=== PATIENT | male | born 1970 | race Caucasian/White ===

== ENCOUNTER → 2016-08-17 | Outpatient (CLI) | payer BC ==
--- NOTE | 2016-08-17 21:36 | MR ---
EXAMINATION TYPE: MR shoulder RT wo con DATE OF EXAM: 08/17/2016 7:04 PM COMPARISON: Outside right shoulder x-ray July 05, 2016 HISTORY: Right shoulder pain per order. Sharp pain with difficulty raising overhead for 4 to 5 months per patient. TECHNIQUE: Multiplanar, multisequence imaging of the right shoulder is performed without contrast. FINDINGS: Exam is suboptimal as technologist did not perform sagittal images as per normal protocol. Rotator Cuff: Some increased signal in distal supraspinatus and infraspinatus tendons is felt present . No suspicious full-thickness retracted tear is seen. No suspicious focal partial tear is clearly se en on paracoronal images. Rotator cuff muscle bulk is preserved. Subscapularis tendon is grossly inta ct. Acromioclavicular Joint: There is capsular hypertrophy and mild to moderate spurring at acromioclavic ular joint but inferior fat plane is maintained. Distal acromion morphology is unremarkable. Glenohumeral Joint: There is moderate-sized glenohumeral joint effusion. No significant spurring is s een. Labrum: The labrum appears grossly intact given limitation of non-arthrogram study. Biceps Tendon: The long head of biceps is in normal location within bicipital groove. Bone marrow signal: No focal abnormal marrow signal is appreciated. Other: No additional significant abnormality is appreciated. IMPRESSION: 1. No rotator cuff or labral tear clearly seen. 2. Mild to moderate degenerative changes at acromioclavicular joint as detailed above. 3. Moderate-sized glenohumeral joint effusion. Patient may be brought back for additional sagittal sequences free of charge and addendum may be issu ed.
== END | disposition home or self-care (01) ==
LOC: RADMRIMAIN 18:16
PROVIDERS: ATTEND Orthopaedic Surgery
DX: M19.011 Primary osteoarthritis, right shoulder (principal)

== ENCOUNTER → 2024-08-15 | Outpatient (CLI) | payer BC ==
[2024-08-15 15:08] LABS: HCT 51.3 % (39.6-50.0); HGB 16.8 g/dL (13.0-17.0); MCH 31.1 pg (27.0-32.0); MCHC 32.7 g/dL (32.0-37.0); Mean Platelet Volume 13.3 FL (9.5-12.2); NRBC Per 100 WBC 0 X 10*3/uL (0.00-0.01); Platelet Count 159 X 10*3/uL (140-440); RDW 13.4 % (11.5-14.5); WBC 6.45 X 10*3/uL (4.50-10.00)
[2024-08-15 15:22] LABS: ALT 31 U/L (10-49); AST 18 U/L (14-35); Albumin 4.2 g/dL (3.8-4.9); Alkaline Phosphatase 44 U/L (41-126); BUN/Creat Ratio 11.67 Ratio (12.00-20.00); Calcium 9.3 mg/dL (8.7-10.3); Carbon Dioxide 27.3 mmol/L (21.6-31.8); Chloride 105 mmol/L (96-109); Chol/HDL Ratio 2.25 Ratio; Globulin 2.1 g/dL (1.6-3.3); Glucose 123 mg/dL (70-110); LDL Cholesterol,Calculated 67.7 mg/dL (0.0-131.0); Potassium 4.9 mmol/L (3.5-5.5); Sodium 141 mmol/L (135-145); Total Bilirubin 0.7 mg/dL (0.3-1.2); Total Protein 6.3 g/dL (6.2-8.2)
[2024-08-15 16:42] LABS: NT-Pro-B-Type Natriuretic Pept <36 pg/mL (0-125)
[2024-08-15 18:13] LABS: Microalbumin Creatinine Ratio <11 mg/g Cr (0-30)
== END | disposition home or self-care (01) ==
LOC: LABWHC1 09:38
PROVIDERS: ATTEND Student in an Organized Health Care Education/Training Program
DX: Z13.6 Encounter for screening for cardiovascular disorders (principal); D72.9 Disorder of white blood cells, unspecified; I50.9 Heart failure, unspecified; E11.9 Type 2 diabetes mellitus without complications; E78.5 Hyperlipidemia, unspecified; E03.9 Hypothyroidism, unspecified; R79.89 Other specified abnormal findings of blood chemistry
CPT/HCPCS: 36415; 80053; 80061; 82043; 82570; 83036; 83880; 84443; 85027; 86141

== ENCOUNTER 2024-09-07 12:35 | Observation (INO) | payer BC ==
[2024-09-07] MEDS: SODIUM CHLORIDE 0.9% 1,000 ML IV ONE (13:16)
[2024-09-07 13:18] LABS: Basophils # (A) 0.08 10*3/uL (0.00-0.10); Basophils % (A) 0.5 %; Eosinophils # (A) 0.25 10*3/uL (0.04-0.35); Eosinophils % (A) 1.7 %; HCT 51.1 % (39.6-50.0); HGB 18.1 g/dL (13.0-17.0); Immature Platelet Fraction 11.8 % (1.1-6.1); Lymphocytes # (A) 1.25 10*3/uL (0.90-5.00); Lymphocytes % (A) 8.4 %; MCH 32.7 pg (27.0-32.0); MCHC 35.4 g/dL (32.0-37.0); MCV 92.4 fL (80.0-97.0); Mean Platelet Volume 13.1 fL (9.5-12.2); Monocytes # (A) 0.83 10*3/uL (0.20-1.00); Monocytes % (A) 5.6 %; Neutrophils # (A) 12.43 10*3/uL (1.80-7.70); Neutrophils % (A) 83.4 %; Platelet Count 157 10*3/uL (140-440); RBC 5.53 10*6/uL (4.40-5.60); RDW 13.2 % (11.5-14.5)
[2024-09-07 13:27] LABS: ALT 40 U/L (4-49); AST 27 U/L (17-59); African American GFR (CKD) >90 (>60 ml/min/1.73 sqM); Albumin 4.4 g/dL (3.5-5.0); Alkaline Phosphatase 48 U/L (38-126); Amylase 43 U/L (30-110); Anion Gap 8 mmol/L; Blood Urea Nitrogen 14 mg/dL (9-20); Calcium 9.7 mg/dL (8.4-10.2); Carbon Dioxide 26 mmol/L (22-30); Chloride 103 mmol/L (98-107); Glucose 136 mg/dL (74-99); Lipase 35 U/L (23-300); Non-African American GFR(CKD) 82 (>60 ml/min/1.73 sqM); Potassium 4.2 mmol/L (3.5-5.1); Sodium 137 mmol/L (137-145); Total Bilirubin 1.2 mg/dL (0.2-1.3)
--- NOTE | 2024-09-07 13:47 | ED ---
General Adult HPI - General Chief complaint: Abdominal Pain Stated complaint: abd pain Time Seen by Provider: 09/07/24 12:44 Source: patient, RN notes reviewed Mode of arrival: ambulatory Limitations: no limitations - History of Present Illness Initial comments: 53-year-old male presents to the emergency department for evaluation of right lower quadrant abdominal pain. Patient states that this started today after drinking some coffee. He notes that it originated in the epigastric region and then localized to the right lower quadrant. He notes that since then the pain has been a constant stabbing pain. He reports a prior hernia repair a number of years ago. He endorses nausea without vomiting. Denies fever. Admits to anorexia. - Related Data Home Medications Medication Instructions Recorded Confirmed Aspirin EC [Ecotrin Low Dose] 81 mg PO HS 09/07/24 09/07/24 Atorvastatin [Lipitor] 40 mg PO HS 09/07/24 09/07/24 Famotidine 40 mg PO HS 09/07/24 09/07/24 INSULIN LISPRO (For Pump) [humaLOG 0.01 units SQ-PUMP CONTINUOUS 09/07/24 09/07/24 (For Pump)] Losartan Potassium 100 mg PO DAILY 09/07/24 09/07/24 Allergies Allergy/AdvReac Type Severity Reaction Status Date / Time No Known Allergies Allergy Verified 09/07/24 14:22 Review of Systems ROS Statement: Those systems with pertinent positive or pertinent negative responses have been documented in the HPI. ROS Other: All systems not noted in ROS Statement are negative. Past Medical History Past Medical History: Diabetes Mellitus, GERD/Reflux, Hypertension Additional Past Medical History / Comment(s): VARICOSE VEINS, HERNIA History of Any Multi-Drug Resistant Organisms: None Reported Additional Past Surgical History / Comment(s): TESTICLE REMOVED, TESTICLE REPAIR, LASIK SURGERY MERLINE EYES Past Anesthesia/Blood Transfusion Reactions: No Reported Reaction Past Psychological History: No Psychological Hx Reported Smoking Status: Never smoker Past Alcohol Use History: Daily Past Drug Use History: None Reported - Past Family History Mother Family Medical History: Cancer Additional Family Medical History / Comment(s): BREAST General Exam Limitations: no limitations General appearance: alert, in no apparent distress Head exam: Present: atraumatic, normocephalic, normal inspection Eye exam: Present: normal appearance, PERRL, EOMI. Absent: scleral icterus, conjunctival injection, periorbital swelling ENT exam: Present: normal exam, mucous membranes moist Respiratory exam: Present: normal lung sounds bilaterally. Absent: respiratory distress, wheezes, rales, rhonchi, stridor Cardiovascular Exam: Present: normal rhythm, tachycardia, normal heart sounds. Absent: systolic murmur, diastolic murmur, rubs, gallop, clicks GI/Abdominal exam: Present: distended, tenderness (Right lower quadrant focal tenderness palpation), normal bowel sounds. Absent: soft, guarding, rebound, rigid Extremities exam: Present: normal inspection, full ROM, normal capillary refill. Absent: tenderness, pedal edema, joint swelling, calf tenderness Back exam: Present: normal inspection Neurological exam: Present: alert, oriented X3 Psychiatric exam: Present: normal affect, normal mood Skin exam: Present: warm, dry, intact, normal color. Absent: rash Course Vital Signs 09/07/24 12:40 Temperature 98.8 F Pulse Rate 112 H Respiratory 20 Rate Blood Pressure 162/88 O2 Sat by Pulse 97 Oximetry Medical Decision Making - Medical Decision Making Was pt. sent in by a medical professional or institution ([facility], HOSPICE CONSULTANT, urgent care, hospital, or senior care...) When possible be specific @ -[No] Did you speak to anyone other than the patient for history (EMS, parent, family, police, friend...)? What history was obtained from this source @ -[No] Did you review nursing and triage notes (agree or disagree)? Why? @ -[I reviewed and agree with nursing and triage notes] Were old charts reviewed (outside hosp., previous admission, EMS record, old EKG, old radiological studies, urgent care reports/EKG's, senior care records)? Report findings @ -[No old charts were reviewed] Differential Diagnosis (chest pain, altered mental status, abdominal pain women, abdominal pain men, vaginal bleeding, weakness, fever, dyspnea, syncope, headache, dizziness, GI bleed, back pain, seizure, CVA, palpatations, mental health, musculoskeletal)? @ -Differential Abdominal Pain Men: Appendicitis, cholecystitis, diverticulosis, ischemic bowel, pancreatitis, hepatitis, UTI, gastroenteritis, AAA, incarcerated hernia, bowel obstruction, constipation, inflammatory bowel, hepatitis, peptic ulcer disease, splenic infarction, perforated viscus, testicular torsion, this is not meant to be an all-inclusive list ] EKG interpreted by me (3pts min.). @ -EKG X-rays interpreted by me (1pt min.). @ -[None done] CT interpreted by me (1pt min.). @ -CT abdomen pelvis obtained reveals acute uncomplicated appendicitis U/S interpreted by me (1pt. min.). @ -[None done] What testing was considered but not performed or refused? (CT, X-rays, U/S, labs)? Why? @ -[None] What meds were considered but not given or refused? Why? @ -[None] Did you discuss the management of the patient with other professionals (professionals i.e. DrJorge, PA, HOSPICE CONSULTANT, lab, RT, psych nurse, social science instructor, table keeper, teacher, contracting officer, caseworker)? Give summary @ -Management discussed with Dr. Potter Was smoking cessation discussed for >3mins.? @ -[No] Was critical care preformed (if so, how long)? @ -[No] Were there social determinants of health that impacted care today? How? (Homelessness, low income, unemployed, alcoholism, drug addiction, transportation, low edu. Level, literacy, decrease access to med. care, half-way, rehab)? @ -[No] Was there de-escalation of care discussed even if they declined (Discuss DNR or withdrawal of care, Hospice)? DNR status @ -[No] What co-morbidities impacted this encounter? (DM, HTN, Smoking, COPD, CAD, Cancer, CVA, ARF, Chemo, Hep., AIDS, mental health diagnosis, sleep apnea, morbid obesity)? @ -[None] Was patient admitted / discharged? Hospital course, mention meds given and route, prescriptions, significant lab abnormalities, going to OR and other pertinent info. @ -[hospital course] Undiagnosed new problem with uncertain prognosis? @ -[No] Drug Therapy requiring intensive monitoring for toxicity (Heparin, Nitro, Insulin, Cardizem)? @ -[No] Were any procedures done? @ -[No] Diagnosis/symptom? @ -[default] Acute, or Chronic, or Acute on Chronic? @ -[default] Uncomplicated (without systemic symptoms) or Complicated (systemic symptoms)? @ -[default] Side effects of treatment? @ -[No] Exacerbation, Progression, or Severe Exacerbation? @ -[No] Poses a threat to life or bodily function? How? (Chest pain, [place], [place], pneumonia, PE, COPD, DKA, ARF, appy, cholecystitis, CVA, Diverticulitis, Homicidal, Suicidal, threat to staff... and all critical care pts) @ -[No] - Lab Data Result diagrams: 09/07/24 13:08 09/07/24 13:08 Lab Results 09/07/24 09/07/24 09/07/24 Range/Units 13:08 13:08 13:08 WBC 14.90 H (4.50-10.00) 10*3/uL RBC 5.53 (4.40-5.60) 10*6/uL Hgb 18.1 H (13.0-17.0) g/dL Hct 51.1 H (39.6-50.0) % MCV 92.4 (80.0-97.0) fL MCH 32.7 H (27.0-32.0) pg MCHC 35.4 (32.0-37.0) g/dL Plt Count 157 (140-440) 10*3/uL MPV 13.1 H (9.5-12.2) fL Immature Gran % (Auto) 0.4 % Neutrophils % 83.4 % Lymphocytes % 8.4 % Monocytes % 5.6 % Eosinophils % 1.7 % Basophils % 0.5 % Immature Gran # 0.06 H (0.00-0.04) 10*3/uL Neutrophils # 12.43 H (1.80-7.70) 10*3/uL Lymphocytes # 1.25 (0.90-5.00) 10*3/uL Monocytes # 0.83 (0.20-1.00) 10*3/uL Eosinophils # 0.25 (0.04-0.35) 10*3/uL Basophils # 0.08 (0.00-0.10) 10*3/uL Immature Plt Fraction 11.8 H (1.1-6.1) % Sodium 137 (137-145) mmol/L Potassium 4.2 (3.5-5.1) mmol/L Chloride 103 (98-107) mmol/L Carbon Dioxide 26 (22-30) mmol/L Anion Gap 8 mmol/L BUN 14 (9-20) mg/dL Creatinine 1.06 (0.66-1.25) mg/dL Est GFR (CKD-EPI)AfAm >90 (>60 ml/min/1.73 sqM) Est GFR (CKD-EPI)NonAf 82 (>60 ml/min/1.73 sqM) Glucose 136 H (74-99) mg/dL Plasma Lactic Acid Moses 1.2 (0.7-2.0) mmol/L Calcium 9.7 (8.4-10.2) mg/dL Total Bilirubin 1.2 (0.2-1.3) mg/dL AST 27 (17-59) U/L ALT 40 (4-49) U/L Alkaline Phosphatase 48 (38-126) U/L Total Protein 7.0 (6.3-8.2) g/dL Albumin 4.4 (3.5-5.0) g/dL Amylase 43 (30-110) U/L Lipase 35 (23-300) U/L Disposition Referrals: Mk Romero DO [Primary Care Provider] - 1-2 days
--- NOTE | 2024-09-07 14:05 | CT ---
EXAMINATION TYPE: CT abdomen pelvis w con DATE OF EXAM: 09/07/2024 1:52 PM COMPARISON: 01/18/2011 CLINICAL INDICATION: Male, 53 years old with history of RLQ pain, abd pain TECHNIQUE: Axial images were obtained from above the diaphragm to the pubic rami in the axial plane a t 5 mm thick sections. Reconstructed images are reviewed on the computer in the coronal plane. CONTRAST: 100 mL of Isovue 300. Study performed without Oral Contrast DLP: 1215.1 mGycm, Automated exposure control for dose reduction was used. FINDINGS: Limited CT sections are obtained the lung bases. The lung bases are clear. CT ABDOMEN: Liver: There is mild fatty infiltration liver. Spleen: Normal Pancreas: Normal Adrenal glands: The adrenal glands are normal. Gallbladder: Normal Kidneys: No masses are evident. No hydronephrosis is present. No cysts are present. Delayed images were obtained through the kidneys, which remain unremarkable. Aorta: Vascular calcification is within the aorta. Inferior vena cava: Normal. CT PELVIS: Loops of bowel within the abdomen and pelvis are normal. There are loops of bowel which are incom pletely distended or lack oral contrast limiting their evaluation. Appendix: The appendix is dilated measuring 1.2 cm. Inflammatory changes are adjacent. Findings are c ompatible with acute appendicitis. No free air is identified. No abscess formation is identified. Urinary bladder: Normal. Genitourinary structures: Prostate is normal Osseous structures: No suspicious lytic or sclerotic lesions. IMPRESSION: 1. Acute appendicitis. Report was called to emergency room PA at the time of imaging. [facility], , 09/07/2024 2:02 PM
[2024-09-07] MEDS: LACTATED RINGERS 1,000 ML IV ONE ×2 (14:56→16:52)
[2024-09-07] MEDS: PIPERACILLIN-TAZOBACTAM 3.375 GM in SODIUM CHLORIDE 0.9% 100 ML IVPB STA (14:56)
[2024-09-07] MEDS ORDERED: NALOXONE 0.4 MG/ML 1 ML VIAL IV PRN (14:57)
[2024-09-07] MEDS ORDERED: HYDROmorphone 1 MG/ML 1 ML SYRINGE IVP PRN (14:57)
[2024-09-07] MEDS ORDERED: HYDROmorphone 0.5 MG/0.5 ML SYRINGE IVP PRN (14:57)
[2024-09-07 15:16] LABS: Appearance,Urine Clear (Clear); Bilirubin,Urine Negative (Negative); Blood,Urine Negative (Negative); Color,Urine Colorless; Glucose,Urine (UA) Negative (Negative); Ketones,Urine 1+ (Negative); Leukocyte Esterase,Urine Negative (Negative); Nitrite,Urine Negative (Negative); PH, Urine 7.5 (5.0-8.0); Protein,Urine Negative (Negative); Specific Gravity,Urine 1.044 (1.001-1.035); Urobilinogen,Urine <2.0 mg/dL (<2.0)
[2024-09-07] MEDS: LACTATED RINGERS 1,000 ML IV SCH (16:20)
[2024-09-07] MEDS: ONDANSETRON 4 MG/2 ML VIAL IVP PRN (16:23)
[2024-09-07 16:30] LABS: Glucose,Whole Blood 159 mg/dL (70-110)
--- NOTE | 2024-09-07 16:46 | P.GSHP ---
History of Present Illness H&P Date: 09/07/24 53-year-old male presents to the hospital after waking up this morning with acute onset right lower quadrant pain. Pain was not getting any better and he came to the hospital for evaluation. [place] nauseated. Appetite diminished. White blood cell count noted to be elevated. Afebrile but tachycardic on arrival. Pain is described as stabbing in nature. History of previous hernia. Underwent CT abdomen pelvis which showed acute appendicitis without abscess or obvious rupture. History of previous laparoscopic umbilical hernia repair with mesh. Past Medical History Past Medical History: Diabetes Mellitus, GERD/Reflux, Hypertension Additional Past Medical History / Comment(s): VARICOSE VEINS, HERNIA History of Any Multi-Drug Resistant Organisms: None Reported Additional Past Surgical History / Comment(s): TESTICLE REMOVED, TESTICLE REPAIR, LASIK SURGERY MERLINE EYES Past Anesthesia/Blood Transfusion Reactions: No Reported Reaction Past Psychological History: No Psychological Hx Reported Smoking Status: Never smoker Past Alcohol Use History: Daily Past Drug Use History: None Reported - Past Family History Mother Family Medical History: Cancer Additional Family Medical History / Comment(s): BREAST Medications and Allergies Home Medications Medication Instructions Recorded Confirmed Type Aspirin EC [Ecotrin Low Dose] 81 mg PO HS 09/07/24 09/07/24 History Atorvastatin [Lipitor] 40 mg PO HS 09/07/24 09/07/24 History Famotidine 40 mg PO HS 09/07/24 09/07/24 History INSULIN LISPRO (For Pump) [humaLOG 0.01 units SQ-PUMP CONTINUOUS 09/07/24 09/07/24 History (For Pump)] Losartan Potassium 100 mg PO DAILY 09/07/24 09/07/24 History Allergies Allergy/AdvReac Type Severity Reaction Status Date / Time No Known Allergies Allergy Verified 09/07/24 14:22 Surgical - Exam Vital Signs Temp Pulse Resp BP Pulse Ox 98.8 F 112 H 20 162/88 97 09/07/24 12:40 09/07/24 12:40 09/07/24 12:40 09/07/24 12:40 09/07/24 12:40 Physical exam: General: Well-developed, well-nourished HEENT: Normocephalic, sclerae nonicteric Abdomen: Right lower quadrant tenderness nondistended Extremities: No edema Neuro: Alert and oriented Results - Labs 09/07/24 13:08 09/07/24 13:08 Abnormal Lab Results - Last 24 Hours (Table) 09/07/24 09/07/24 09/07/24 Range/Units 13:08 13:08 15:04 WBC 14.90 H (4.50-10.00) 10*3/uL Hgb 18.1 H (13.0-17.0) g/dL Hct 51.1 H (39.6-50.0) % MCH 32.7 H (27.0-32.0) pg MPV 13.1 H (9.5-12.2) fL Immature Gran # 0.06 H (0.00-0.04) 10*3/uL Neutrophils # 12.43 H (1.80-7.70) 10*3/uL Immature Plt Fraction 11.8 H (1.1-6.1) % Glucose 136 H (74-99) mg/dL POC Glucose (mg/dL) (70-110) mg/dL Ur Specific [place] 1.044 H (1.001-1.035) Urine Ketones 1+ H (Negative) 09/07/24 Range/Units 16:18 WBC (4.50-10.00) 10*3/uL Hgb (13.0-17.0) g/dL Hct (39.6-50.0) % MCH (27.0-32.0) pg MPV (9.5-12.2) fL Immature Gran # (0.00-0.04) 10*3/uL Neutrophils # (1.80-7.70) 10*3/uL Immature Plt Fraction (1.1-6.1) % Glucose (74-99) mg/dL POC Glucose (mg/dL) 159 H (70-110) mg/dL Ur Specific [place] (1.001-1.035) Urine Ketones (Negative) Diabetes panel 09/07/24 Range/Units 13:08 Sodium 137 (137-145) mmol/L Potassium 4.2 (3.5-5.1) mmol/L Chloride 103 (98-107) mmol/L Carbon Dioxide 26 (22-30) mmol/L BUN 14 (9-20) mg/dL Creatinine 1.06 (0.66-1.25) mg/dL Glucose 136 H (74-99) mg/dL Calcium 9.7 (8.4-10.2) mg/dL AST 27 (17-59) U/L ALT 40 (4-49) U/L Alkaline Phosphatase 48 (38-126) U/L Total Protein 7.0 (6.3-8.2) g/dL Albumin 4.4 (3.5-5.0) g/dL Calcium panel 09/07/24 Range/Units 13:08 Calcium 9.7 (8.4-10.2) mg/dL Albumin 4.4 (3.5-5.0) g/dL Pituitary panel 09/07/24 Range/Units 13:08 Sodium 137 (137-145) mmol/L Potassium 4.2 (3.5-5.1) mmol/L Chloride 103 (98-107) mmol/L Carbon Dioxide 26 (22-30) mmol/L BUN 14 (9-20) mg/dL Creatinine 1.06 (0.66-1.25) mg/dL Glucose 136 H (74-99) mg/dL Calcium 9.7 (8.4-10.2) mg/dL Adrenal panel 09/07/24 Range/Units 13:08 Sodium 137 (137-145) mmol/L Potassium 4.2 (3.5-5.1) mmol/L Chloride 103 (98-107) mmol/L Carbon Dioxide 26 (22-30) mmol/L BUN 14 (9-20) mg/dL Creatinine 1.06 (0.66-1.25) mg/dL Glucose 136 H (74-99) mg/dL Calcium 9.7 (8.4-10.2) mg/dL Total Bilirubin 1.2 (0.2-1.3) mg/dL AST 27 (17-59) U/L ALT 40 (4-49) U/L Alkaline Phosphatase 48 (38-126) U/L Total Protein 7.0 (6.3-8.2) g/dL Albumin 4.4 (3.5-5.0) g/dL Assessment and Plan (1) Acute appendicitis Narrative/Plan: 53-year-old male with acute appendicitis. Will proceed with laparoscopic, possible open appendectomy at this time. Risks of bleeding, infection, conversion to an open procedure, bladder bowel and ureteral injury, difficulties related to the previous mesh placement, abscess, hernia reviewed. He understands and wishes to proceed. Current Visit: Yes Status: Acute Code(s): K35.80 - UNSPECIFIED ACUTE APPENDICITIS SNOMED Code(s): 46667634
[2024-09-07] MEDS: HEPARIN SODIUM,PORCINE 5,000 UNIT/ML 1 ML VIAL SQ STA (16:49)
[2024-09-07] MEDS ORDERED: GLYCOPYRROLATE 0.2 MG/ML 2 ML VIAL ONE (16:50)
[2024-09-07] MEDS ORDERED: MIDAZOLAM 2 MG/2 ML VIAL ONE (16:50)
[2024-09-07] MEDS ORDERED: fentaNYL (PF) 50 MCG/ML 2 ML AMP ONE (16:50)
[2024-09-07] MEDS ORDERED: LIDOCAINE 1% INJ 10MG/ML (20 ML MDV) ONE (16:50)
[2024-09-07] MEDS ORDERED: ROCURONIUM 10 MG/ML (5 ML VIAL) IV ONE (16:50)
[2024-09-07] MEDS ORDERED: PHENYLEPHRINE-0.9% NACL SYG 1,000 MCG/10 ML SYRINGE ONE (16:50)
[2024-09-07] MEDS ORDERED: SUCCINYLCHOLINE CHLORIDE 200 MG/10 ML VIAL IV ONE (16:50)
[2024-09-07] MEDS ORDERED: PROPOFOL 10 MG/ML 20 ML VIAL IV ONE (16:50)
[2024-09-07] MEDS ORDERED: NEOSTIGMINE 1 MG/ML 10 ML VIAL ONE (16:50)
[2024-09-07] MEDS: BUPIVACAINE (PF) 0.25% 30 ML VIAL SQ ONE ×2 (17:24→17:47)
[2024-09-07] MEDS ORDERED: ACETAMINOPHEN TAB 325 MG TAB PO PRN (18:01)
[2024-09-07] MEDS ORDERED: traMADol 50 MG TAB PO PRN (18:01)
[2024-09-07] MEDS: IV FLUID CONTINUATION 1,000 ML IV ONE (18:04)
--- NOTE | 2024-09-07 18:05 | P.OP ---
Date of Procedure: 09/07/24 Procedure(s) Performed: PREOPERATIVE DIAGNOSIS: Acute appendicitis POSTOPERATIVE DIAGNOSIS: Same, extensive mid abdominal adhesions PROCEDURE: Laparoscopic appendectomy with laparoscopic lysis of adhesions SURGEON: Tariq EBL: 10 cc ANESTHESIA: General COMPLICATIONS: None OPERATIVE PROCEDURE: The patient was brought and placed on the operating table in the supine position. The patient was placed under general anesthesia. The abdomen was prepped and draped in the usual sterile fashion. A horizontal inc ision was made in the left upper quadrant. Entrance into the abdominal cavity occurred using an optical trocar without difficulty. An additional 12 mm trocar was placed in the lateral aspect of the left lower quadrant and a 5 mm trocar in the left suprapubic location. The patient had adhesions involving small bowel and omentum to the patient's mesh that was placed laparoscopically previously ce ntered around the umbilical region. This appeared to be an 8 cm round mesh. Using a combination of a Kitner and a laparoscopic scissors we were able to carefully dissect the bowel away from the mesh to allow for appropriate visualization of the peritoneal cavity. No visible serosal tears or enterotomies were identified. No significant bleeding was noted. Once the adhesions were lysed which took approximately 20 to 30 minutes we approach to the right lower quadrant. The patient's appendix was acutely inflamed. It had early gangrenous changes but without perforation or abscess. Localized peritonitis was present. The appendix was mobilized by dividing the mesoappendix using LigaSure. The base of the appendix was divided using a white load endoscopic stapler. The appendix was removed using an Endo Catch bag. The fascia at the 12 mm site was closed using a Zuhair-Kendy 0 Vicryl stitch. The skin at all 3 sites was closed using 4-0 Monocryl sutures. Skin glue was then applied. DISPOSITION: Stable to recovery room
[2024-09-07] MEDS ORDERED: INSULIN LISPRO (For Pump) 100 UNIT/ML VIAL SQ-PUMP SCH (20:15)
[2024-09-07] MEDS ORDERED: INSULIN LISPRO (HumaLOG) 100 UNIT/ML 10 mL VL SQ PRN (20:16)
[2024-09-07] MEDS ORDERED: INSULIN PUMP BASAL RATES 1 EACH MISC MISCELLANE PRN (20:16)
[2024-09-07] MEDS ORDERED: INSPUCOR MISCELLANE PRN (20:16)
[2024-09-07 20:22] LABS: Glucose,Whole Blood 188 mg/dL (70-110)
[2024-09-07] MEDS ORDERED: HYDROmorphone 2 MG/ML 1 ML SYRINGE IVP PRN (20:47)
[2024-09-07] MEDS: HYDROcodone/APAP 5-325MG 1 EACH TAB PO PRN (21:12)
[2024-09-07] MEDS: ATORVASTATIN 40 MG TAB PO SCH (21:13)
[2024-09-07] MEDS: FAMOTIDINE 20 MG TAB PO SCH (21:13)
[2024-09-07] MEDS: ASPIRIN 81 MG PO SCH (21:13)
[2024-09-07] MEDS: INSULIN PUMP MEAL BOLUS 1 UNIT MISC MISCELLANE SCH (21:22)
[2024-09-07] MEDS: PIPERACILLIN-TAZOBACTAM 3.375 GM in SODIUM CHLORIDE 0.9% 100 ML IVPB SCH (23:53)
[2024-09-07] MEDS: HEPARIN SODIUM,PORCINE 5,000 UNIT/ML 1 ML VIAL SQ SCH (23:54)
[2024-09-08] MEDS: KETOROLAC 15 MG/ML 1 ML VIAL IVP PRN (00:16)
[2024-09-08 03:21] LABS: Glucose,Whole Blood 78 mg/dL (70-110)
[2024-09-08 06:14] LABS: Glucose,Whole Blood 100 mg/dL (70-110)
[2024-09-08 08:53] LABS: Basophils # (A) 0.07 X 10*3/uL (0.00-0.10); Basophils % (A) 0.7 %; Eosinophils # (A) 0.11 X 10*3/uL (0.04-0.35); Eosinophils % (A) 1.1 %; HCT 45.5 % (39.6-50.0); HGB 15.3 g/dL (13.0-17.0); Lymphocytes # (A) 1.67 X 10*3/uL (0.90-5.00); Lymphocytes % (A) 16.6 %; MCH 31.9 pg (27.0-32.0); MCHC 33.6 g/dL (32.0-37.0); Mean Platelet Volume 13.9 FL (9.5-12.2); Monocytes # (A) 0.78 X 10*3/uL (0.20-1.00); Monocytes % (A) 7.7 %; NRBC Per 100 WBC 0 X 10*3/uL (0.00-0.01); Neutrophils # (A) 7.42 X 10*3/uL (1.80-7.70); Neutrophils % (A) 73.5 %; Platelet Count 159 X 10*3/uL (140-440); RBC 4.79 X 10*6/uL (4.40-5.60); RDW 13.6 % (11.5-14.5); WBC 10.09 X 10*3/uL (4.50-10.00)
[2024-09-08] MEDS: LOSARTAN 50 MG TAB PO SCH (09:42)
--- NOTE | 2024-09-08 10:37 | P.CONS ---
History of Present Illness - Reason for Consult Consult date: 09/08/24 Medical management Requesting physician: Ren Potter - Chief Complaint Status post laparoscopic appendectomy with lysis of adhesions, POD#1 - History of Present Illness This a 53-year-old gentleman with past medical history significant for diabetes mellitus/insulin pump, gastroesophageal reflux disease, hypertension, hernia repairs, varicose veins, daily alcohol use, consumes 7-10 drinks per week, admitted with acute appendicitis, status post laparoscopic appendectomy with lysis of adhesions. OR report states early gangrenous changes but without perforation or abscess, localized peritonitis present. Maintained on antibiotics of Zosyn, IV fluid hydration. afebrile, Tmax 99, WBC nearly normalized, trended down to 10.09. Hemoglobin 15.3, platelets 159. Blood s ugars controlled, with an isolated lower blood sugar 78 in the early a.m. hours. Consumed 25% of clear liquid breakfast. Hemoglobin A1c 6.7. Reports pain controlled. Denies chest pain, palpitations or shortness of breath. Maintaining O2 sats of 93 to mid 90s on room air. Review of Systems ROS Statement: Those systems with pertinent positive or pertinent negative responses have been documented in the HPI. ROS Other: All systems not noted in ROS Statement are negative. Past Medical History Past Medical History: Diabetes Mellitus, GERD/Reflux, Hypertension Additional Past Medical History / Comment(s): VARICOSE VEINS, 2 HERNIA History of Any Multi-Drug Resistant Organisms: None Reported Past Surgical History: Appendectomy Additional Past Surgical History / Comment(s): TESTICLE REMOVED, TESTICLE REPAIR, LASIK SURGERY MERLINE EYES Past Anesthesia/Blood Transfusion Reactions: No Reported Reaction Past Psychological History: No Psychological Hx Reported Smoking Status: Never smoker Past Alcohol Use History: Daily Additional Past Alcohol Use History / Comment(s): DRINKS BETWEEN 7-10 DRINKS PER WEEK Past Drug Use History: None Reported - Past Family History Mother Family Medical History: Cancer Additional Family Medical History / Comment(s): BREAST Medications and Allergies Home Medications Medication Instructions Recorded Confirmed Type Aspirin EC [Ecotrin Low Dose] 81 mg PO HS 09/07/24 09/07/24 History Atorvastatin [Lipitor] 40 mg PO HS 09/07/24 09/07/24 History Famotidine 40 mg PO HS 09/07/24 09/07/24 History INSULIN LISPRO (For Pump) [humaLOG 0.01 units SQ-PUMP CONTINUOUS 09/07/24 09/07/24 History (For Pump)] Losartan Potassium 100 mg PO DAILY 09/07/24 09/07/24 History Allergies Allergy/AdvReac Type Severity Reaction Status Date / Time No Known Allergies Allergy Verified 09/07/24 14:22 Physical Exam Vitals: Vital Signs Temp Pulse Pulse Pulse Resp BP BP 09/08/24 07:37 97.3 F L 94 17 132/80 09/08/24 00:05 99.0 F 118 H 18 125/66 09/07/24 20:59 117 H 155/81 09/07/24 20:44 117 H 157/85 09/07/24 20:29 112 H 168/89 09/07/24 20:14 114 H 166/88 09/07/24 19:59 107 H 167/84 09/07/24 19:44 108 H 166/117 09/07/24 19:29 109 H 158/76 09/07/24 19:14 98 180/83 09/07/24 18:59 98.2 F 94 18 183/101 09/07/24 18:45 88 17 151/84 09/07/24 18:30 91 16 140/75 09/07/24 18:15 94 18 124/64 09/07/24 18:04 97.4 F L 98 16 133/74 09/07/24 16:00 98 18 165/92 09/07/24 12:40 98.8 F 112 H 20 162/88 Pulse Ox 09/08/24 07:37 95 09/08/24 00:05 93 L 09/07/24 20:59 96 09/07/24 20:44 97 09/07/24 20:29 98 09/07/24 20:14 96 09/07/24 19:59 96 09/07/24 19:44 96 09/07/24 19:29 96 09/07/24 19:14 96 09/07/24 18:59 97 09/07/24 18:45 95 09/07/24 18:30 95 09/07/24 18:15 100 09/07/24 18:04 100 09/07/24 16:00 99 09/07/24 12:40 97 Intake and Output 09/07/24 09/08/24 09/08/24 22:59 06:59 14:59 Intake Total 800 120 Output Total 10 Balance 790 120 Intake: IV 800 Oral 120 Output: Estimated Blood Loss 10 Other: Voiding Method Toilet # Voids 2 Weight 90.718 kg 90.718 kg PHYSICAL EXAM: VITAL SIGNS: [reviewed] GENERAL: Alert and oriented x 3, sitting up in chair, no acute distress HEENT: Normocephalic, atraumatic ,conjunctivae normal. eyes normal. MMM. NECK: Supple, no JVD. CARDIOVASCULAR: S1, S2 regular. No murmur RESPIRATION: Unlabored, equal air entry , clear to auscultation with bilateral bases diminished. ABDOMEN: Soft, nondistended, status post surgery. LEGS: No edema. no swelling NERVOUS SYSTEM: Cranial N 2-12 grossly normal. No focal deficits. Skin: Warm and dry, no rash Results CBC & Chem 7: 09/08/24 03:40 09/07/24 13:08 Labs: Abnormal Lab Results - Last 24 Hours (Table) 09/07/24 09/07/24 09/07/24 Range/Units 13:08 13:08 15:04 WBC 14.90 H (4.50-10.00) 10*3/uL Hgb 18.1 H (13.0-17.0) g/dL Hct 51.1 H (39.6-50.0) % MCH 32.7 H (27.0-32.0) pg MPV 13.1 H (9.5-12.2) fL Immature Gran # 0.06 H (0.00-0.04) 10*3/uL Neutrophils # 12.43 H (1.80-7.70) 10*3/uL Immature Plt Fraction 11.8 H (1.1-6.1) % Glucose 136 H (74-99) mg/dL POC Glucose (mg/dL) (70-110) mg/dL Hemoglobin A1c (<=6.0) % Ur Specific [place] 1.044 H (1.001-1.035) Urine Ketones 1+ H (Negative) 09/07/24 09/07/24 09/08/24 Range/Units 16:18 20:20 03:40 WBC (4.50-10.00) 10*3/uL Hgb (13.0-17.0) g/dL Hct (39.6-50.0) % MCH (27.0-32.0) pg MPV (9.5-12.2) fL Immature Gran # (0.00-0.04) 10*3/uL Neutrophils # (1.80-7.70) 10*3/uL Immature Plt Fraction (1.1-6.1) % Glucose (74-99) mg/dL POC Glucose (mg/dL) 159 H 188 H (70-110) mg/dL Hemoglobin A1c 6.7 H (<=6.0) % Ur Specific [place] (1.001-1.035) Urine Ketones (Negative) 09/08/24 Range/Units 03:40 WBC 10.09 H (4.50-10.00) 10*3/uL Hgb (13.0-17.0) g/dL Hct (39.6-50.0) % MCH (27.0-32.0) pg MPV 13.9 H (9.5-12.2) fL Immature Gran # (0.00-0.04) 10*3/uL Neutrophils # (1.80-7.70) 10*3/uL Immature Plt Fraction (1.1-6.1) % Glucose (74-99) mg/dL POC Glucose (mg/dL) (70-110) mg/dL Hemoglobin A1c (<=6.0) % Ur Specific [place] (1.001-1.035) Urine Ketones (Negative) Assessment and Plan Assessment: Acute appendicitis, status post laparoscopic appendectomy with laparoscopic lysis of adhesions Diabetes mellitus, has insulin pump, hemoglobin A1c 6.7 Alcohol use, reports daily, 7-10 drinks per week Gastroesophageal reflux disease History of hernia repairs x 2 Obesity, BMI 34 Plan: Continue on current medication regimen ,monitoring and symptomatic treatment. Antibiotics, pain management, DVT prophylaxis with heparin subcu , diet advancement as per general surgery. GI prophylaxis with Pepcid in place. Gentle IV fluid hydration. increase ambulation as tolerated. Aggressive pulmonary toileting with incentive spirometer ordered. Close monitoring of A ccu-Cheks. thank you for the consult. The impression and plan of care has been dictated as directed. : I performed a history and examination of this patient, discussed the same with the dictator. I agree with the dictator's note ,documented as a scribe. Any additional findings or plans will be noted.
[2024-09-08 11:19] LABS: Glucose,Whole Blood 104 mg/dL (70-110)
[2024-09-08 14:19] VITALS: BP 146/86; PULSE 67; RESP 18; TEMP 98.1
--- NOTE | 2024-09-08 14:53 | P.DS ---
Providers Date of admission: 09/07/24 15:43 Expected date of discharge: 09/08/24 Attending physician: Ren Potter Consults: 09/07/24 18:01 Consult Physician Routine Consulting Provider: Mk Romero Consult Reason/Comments: Medical management Do you want consulting provider notified?: Yes Primary care physician: Mk Romero Hospital Course: Discharge diagnosis 1. Acute appendicitis Hospital course This is a 53-year-old male who presented to the hospital with complaints of right lower quadrant abdominal pain. CT scan abdomen and pelvis showed acute appendicitis. Patient tolerated surgery well. His pain is controlled. He is tolerating diet. He has been up and ambulating. He is afebrile. He is stable for discharge. Please refer to chart for any further details. Physician [employer] note has been reviewed by physician. Signing provider agrees with the documented findings, assessment, and plan of care. Patient Condition at Discharge: Stable Plan - Discharge Summary Discharge Rx Participant: No New Discharge Prescriptions: New Docusate [Colace] 100 mg PO BID #30 capsule HYDROcodone/APAP 5-325MG [[place] 5-325] 1 tab PO Q6HR PRN 3 Days #12 tab PRN Reason: Pain Ibuprofen [Motrin] 600 mg PO Q8HR PRN #30 tab PRN Reason: Pain Continue Famotidine 40 mg PO HS Atorvastatin [Lipitor] 40 mg PO HS INSULIN LISPRO (For Pump) [humaLOG (For Pump)] 0.01 units SQ-PUMP CONTINUOUS Aspirin EC [Ecotrin Low Dose] 81 mg PO HS Losartan Potassium 100 mg PO DAILY Discharge Medication List Aspirin EC [Ecotrin Low Dose] 81 mg PO HS 09/07/24 [History] Atorvastatin [Lipitor] 40 mg PO HS 09/07/24 [History] Famotidine 40 mg PO HS 09/07/24 [History] INSULIN LISPRO (For Pump) [humaLOG (For Pump)] 0.01 units SQ-PUMP CONTINUOUS 09/07/24 [History] Losartan Potassium 100 mg PO DAILY 09/07/24 [History] Docusate [Colace] 100 mg PO BID #30 capsule 09/08/24 [Rx] HYDROcodone/APAP 5-325MG [[place] 5-325] 1 tab PO Q6HR PRN 3 Days #12 tab 09/08/24 [Rx] Ibuprofen [Motrin] 600 mg PO Q8HR PRN #30 tab 09/08/24 [Rx] Follow up Appointment(s)/Referral(s): Mk Romero DO [Primary Care Provider] - 1 Week Ren Potter MD [Medical Doctor] - 1 Week Activity/Diet/Wound Care/Special Instructions: No driving while taking [place] No lifting over 10 pounds You may shower. No soaking or tub baths for 2 weeks Very light activity until you are reevaluated at your follow up appointment with your surgeon Discharge Disposition: HOME SELF-CARE
== END 2024-09-08 16:02 | disposition home or self-care (01) ==
LOC: EC 12:35 → 4SSUR 15:43
PROVIDERS: ADMIT Surgery; ATTEND Surgery
DX: K35.31 Acute appendicitis with localized peritonitis and gangrene, without perforation (principal); K66.0 Peritoneal adhesions (postprocedural) (postinfection); E11.9 Type 2 diabetes mellitus without complications; K21.9 Gastro-esophageal reflux disease without esophagitis; I10 Essential (primary) hypertension; I83.90 Asymptomatic varicose veins of unspecified lower extremity; F10.90 Alcohol use, unspecified, uncomplicated; E66.9 Obesity, unspecified; Z68.34 Body mass index [BMI] 34.0-34.9, adult; Z79.82 Long term (current) use of aspirin; Z79.4 Long term (current) use of insulin; Z79.899 Other long term (current) drug therapy; Z96.41 Presence of insulin pump (external) (internal); Z87.19 Personal history of other diseases of the digestive system; Z98.890 Other specified postprocedural states
CPT/HCPCS: 96372 ×2; 96374; 99285; 36415; 93005; 88304; 80053; 82150; 83605 ×2; 83690; 85025 ×2; 81003; 87040; 83036; 74177; 44970; G0378 ×2; J2543 ×2; J2250; J0330; J1644 ×2; J2710; J2405; J2003; J3010; J1885; J2704; Q9967; J2371; J0665; J1596